=== PATIENT | female | born 1980 | race Caucasian/White ===

== ENCOUNTER 2016-12-13 07:05 | Emergency (ER) | payer BC ==
--- NOTE | 2016-12-13 07:55 | ER Document Report ---
ED GI/ - General Mode of Arrival: Ambulatory Information source: Patient TRAVEL OUTSIDE OF THE [place] IN LAST 30 DAYS: No - HPI Patient complains to provider of: Vaginal bleeding Associated symptoms: Other - See above <EDIN LARIOS - Last Filed: 12/13/16 08:09> <EDITA MUSA - Last Filed: 12/13/16 10:54> - General Chief Complaint: Vaginal Bleeding Stated Complaint: VAGINAL BLEEDING Time Seen by Provider: 12/13/16 07:47 Notes: Patient is a 36 year old female who presents to the emergency department complaining of vaginal bleeding onset this morning. Patient is 14 weeks , . Patient reports that she noticed the blood in the toilet this morning after urinating, described it as a "pinky" red and mixed in with the urine. Patient also complains of some mild abdominal cramps since. ObGYN: [facility] (EDIN LARIOS) - Related Data Allergies/Adverse Reactions: No Known Allergies Allergy (Verified 11/10/15 14:48) Past Medical History - General Information source: Patient - Social History Smoking Status: Never Smoker Family History: Reviewed & Not Pertinent Patient has suicidal ideation: No Patient has homicidal ideation: No Past Surgical History: Reports: Hx Section - 11/2015 <EDIN LARIOS - Last Filed: 12/13/16 08:09> Review of Systems - Review of Systems Constitutional: No symptoms reported EENT: No symptoms reported Cardiovascular: No symptoms reported Respiratory: No symptoms reported Gastrointestinal: See HPI, Abdominal pain Genitourinary: No symptoms reported Female Genitourinary: See HPI, , Vaginal bleeding Musculoskeletal: No symptoms reported Skin: No symptoms reported Hematologic/Lymphatic: No symptoms reported Neurological/Psychological: No symptoms reported -: Yes All other systems reviewed and negative <EDIN LARIOS - Last Filed: 12/13/16 08:09> Physical Exam - Vital signs Interpretation: Normal - General General appearance: Appears well, Alert - HEENT Head: Normocephalic, Atraumatic - Respiratory Respiratory status: No respiratory distress Chest status: Nontender Breath sounds: Normal Chest palpation: Normal - Cardiovascular Rhythm: Regular Heart sounds: Normal auscultation Murmur: No - Abdominal Inspection: Obese Distension: No distension Bowel sounds: Normal Tenderness: Nontender - and soft Organomegaly: No organomegaly - Back Back: Normal, Nontender - Extremities General upper extremity: Normal inspection General lower extremity: Normal inspection - Neurological Neuro grossly intact: Yes Cognition: Normal Orientation: AAOx4 Lui Coma Scale Eye Opening: Spontaneous [place] Coma Scale Verbal: Oriented [place] Coma Scale Motor: Obeys Commands Lui Coma Scale Total: 15 Speech: Normal - Psychological Associated symptoms: Normal affect, Normal mood - Skin Skin Temperature: Warm Skin Moisture: Dry Skin Color: Normal <EDIN LARIOS - Last Filed: 12/13/16 08:09> - Genitourinary External exam: Normal Speculum exam: Cervix closed, Other - There is very old dark brownish blood seen in the vaginal vault and from the cervix. <EDITA MUSA - Last Filed: 12/13/16 10:54> - Vital signs Vitals: Temp Pulse Resp BP Pulse Ox 98.6 F 98 16 129/83 H 98 12/13/16 07:13 12/13/16 07:13 12/13/16 07:13 12/13/16 07:13 12/13/16 07:13 Course <EDIN LARIOS - Last Filed: 12/13/16 08:09> - Laboratory Result Diagrams: 12/13/16 08:15 - Diagnostic Test Radiology reviewed: Image reviewed, Reports reviewed - Ultrasound shows a 13 week 4 day gestation rate of 150. There are no abnormalities seen. <EDITA MUSA - Last Filed: 12/13/16 10:54> - Re-evaluation Re-evalutation: 12/13/16 10:49 Patient's history, physical exam, and ultrasound suggests she had a subchorionic bleed several days ago and it is just now working his way out. ( EDITA MUSA) - Vital Signs Vital signs: Temp Pulse Resp BP Pulse Ox 98.6 F 98 20 129/83 H 98 12/13/16 07:13 12/13/16 07:13 12/13/16 07:55 12/13/16 07:13 12/13/16 07:13 - Laboratory Laboratory results interpreted by me: 12/13/16 08:20 Urine Ketones 20 H Discharge <EDIN LARIOS - Last Filed: 12/13/16 08:09> <EDITA MUSA - Last Filed: 12/13/16 10:54> - Discharge Clinical Impression: 13 week 4 day intrauterine , Subchorionic hemorrhage in second trimester Condition: Stable Disposition: HOME, SELF-CARE Additional Instructions: Ultrasound shows a normal measuring 13 weeks 4 days. Your exam suggests you had a small subchorionic bleed several days ago and it is just now working its way out of the uterus into the vagina. [facility] for [facility]ck. RETURN TO THE EMERGENCY ROOM IF ANY NEW OR WORSENING SYMPTOMS. Scribe Attestation: 12/13/16 10:54 I personally performed the services described in the documentation, reviewed and edited the documentation which was dictated to the scribe in my presence, and it accurately records my words and actions. (EDITA MUSA) Scribe Documentation - Scribe Written by Maria Eugenia:: maria eugenia Vogt, 12/13/16, 0810 acting as scribe for :: Raymond <EDIN LARIOS - Last Filed: 12/13/16 08:09>
[2016-12-13 08:21] LABS: ABSOLUTE BASOPHILS # (AUTO) 0.1 10^3/uL (0.0-0.2); ABSOLUTE EOSINOPHILS # (AUTO) 0.1 10^3/uL (0.0-0.6); ABSOLUTE LYMPHOCYTES (AUTO) 1.6 10^3/uL (0.5-4.7); ABSOLUTE MONOCYTES (AUTO) 0.6 10^3/uL (0.1-1.4); ABSOLUTE NEUT (AUTO) 7.6 10^3/uL (1.7-8.2); BASOPHILS % (AUTO) 0.6 % (0-2); HEMATOCRIT 39.6 % (36.0-47.0); HEMOGLOBIN 13.2 g/dL (12.0-15.5); LYMPHOCYTES % (AUTO) 16.1 % (13-45); MEAN CORPUSCULAR HEMOGLOBIN 28.2 pg (27.0-33.4); MEAN CORPUSCULAR HGB CONC 33.4 g/dL (32.0-36.0); MEAN CORPUSCULAR VOLUME 85 fl (80-97); MONOCYTES % (AUTO) 5.7 % (3-13); RED BLOOD COUNT 4.69 10^6/uL (3.72-5.28); RED CELL DISTRIBUTION WIDTH 13.9 % (11.5-14.0); SEGMENTED NEUTROPHILS % (AUTO) 76.6 % (42-78)
[2016-12-13 09:49] LABS: APPEARANCE,URINE CLEAR; BILIRUBIN,URINE NEGATIVE (NEGATIVE); GLUCOSE, URINE NEGATIVE (NEGATIVE); KETONES,URINE 20 mg/dL (NEGATIVE); LEUKOCYTE ESTERASE,URINE NEGATIVE (NEGATIVE); NITRITE,URINE NEGATIVE (NEGATIVE); PROTEIN,URINE NEGATIVE (NEGATIVE); URINE SPECIFIC GRAVITY 1.021; UROBILINOGEN,URINE NEGATIVE mg/dL (<2.0)
[2016-12-13 09:57] LABS: BACTERIA,URINE 1+ /HPF; RBC,URINE RARE /HPF
--- NOTE | 2016-12-13 10:25 | RADIOLOGY REPORT (SQ) ---
EXAM DESCRIPTION: U/S [id number] TRNABD 1GES W/ODOP COMPLETED DATE/TIME: 12/13/2016 9:35 am REASON FOR STUDY: vag bleeding COMPARISON: None. TECHNIQUE: Transabdominal static and realtime grayscale images acquired of the pelvis. Additional se lected spectral and color Doppler images recorded. All images stored on PACs. bHCG: Not applicable. LIMITATIONS: None. FINDINGS: FETUS: Living intrauterine . EGA: 13 weeks 4 days FRIDA: 06/16/2017 FHR: 150 beats per minute. SUBCHORIONIC BLEED: No SIZE OF BLEED: Not applicable. UTERUS: No masses, no non months. 15 x 10.3 x 6.9 cm. CERVICAL LENGTH: 5.4 cm Closed. RIGHT ADNEXA: Ovary not identified. No adnexal free fluid. No adnexal masses. LEFT ADNEXA: Ovary not identified. No adnexal free fluid. No adnexal masses. FREE FLUID: None. OTHER: No other significant finding. IMPRESSION: LIVING INTRAUTERINE . EGA 13 weeks 4 days. Trimester of : 2nd -13 to 26 weeks. TECHNICAL DOCUMENTATION: JOB ID: [id number] [employer]- All Rights Reserved
[2016-12-13 11:27] VITALS: BP 138/83
== END 2016-12-13 11:25 | disposition home or self-care (01) ==
LOC: ER 07:05
DX: O46.92 Antepartum hemorrhage, unspecified, second trimester (principal); Z3A.14 14 weeks gestation of pregnancy
CPT/HCPCS: 99284; 96372; 51701; 86900; 86901; 36415; 86850; 85025; 81001; 76801; J2790

== ENCOUNTER 2016-12-16 04:54 | Emergency (ER) | payer BC ==
--- NOTE | 2016-12-16 06:58 | ER Document Report ---
ED GI/ - General Mode of Arrival: Ambulatory Information source: Patient TRAVEL OUTSIDE OF THE [place] IN LAST 30 DAYS: No - HPI Patient complains to provider of: Vaginal bleeding Onset: Other - 3 days ago Menstrual period history: Associated symptoms: Other - see notes above - General Chief Complaint: Vaginal Bleeding Stated Complaint: VAG BLEEDING Time Seen by Provider: 12/16/16 06:45 Notes: 36 year old female () presents to the ED complaining of vaginal bleeding that started 3 days ago. Patient reports that she was seen in the ED 3 days ago after noticing blood in the toilet when she went to wipe and was diagnosed with a subchorionic bleed. Patient reports that early this morning she was walking to get a drink when she noticed blood soaking through her clothing. Patient states that she uses a pad, and denies and blood soaking through it. OB: [facility]; next appointment later this week (DHRUV HUDSON) - Related Data Allergies/Adverse Reactions: No Known Allergies Allergy (Verified 12/16/16 05:07) Past Medical History - General Information source: Patient - Social History Smoking Status: Unknown if Ever Smoked Family History: Reviewed & Not Pertinent Renal/ Medical History: Reports: Other - subchornionic bleed during 2nd . Denies: Hx Peritoneal Dialysis Past Surgical History: Reports: Hx Section - 11/2015 - Immunizations Hx Diphtheria, Pertussis, Tetanus Vaccination: Yes Review of Systems - Review of Systems Constitutional: No symptoms reported EENT: No symptoms reported Cardiovascular: No symptoms reported Respiratory: No symptoms reported Gastrointestinal: No symptoms reported Genitourinary: No symptoms reported Female Genitourinary: See HPI, , Vaginal bleeding Musculoskeletal: No symptoms reported Skin: No symptoms reported Hematologic/Lymphatic: No symptoms reported Neurological/Psychological: No symptoms reported -: Yes All other systems reviewed and negative Physical Exam - General General appearance: Alert In distress: None - HEENT Head: Normocephalic, Atraumatic Eyes: Normal Extraocular movements intact: Yes Pupils: PERRL - Respiratory Respiratory status: No respiratory distress Breath sounds: Normal - Cardiovascular Rhythm: Regular Heart sounds: Normal auscultation - Abdominal Inspection: Normal Distension: No distension Tenderness: Nontender - Genitourinary External exam: Normal Speculum exam: Cervix closed Vaginal bleeding: Mild - dark scant blood in vaginal cul de sac [place] exam: Normal. No: Cervical motion tender, Adnexal tenderness - Back Back: Normal - Extremities General upper extremity: Normal inspection, Normal ROM General lower extremity: Normal inspection, Normal ROM, Normal weight bearing - Neurological Neuro grossly intact: Yes Cognition: Normal Orientation: AAOx4 Lui Coma Scale Eye Opening: Spontaneous Lui Coma Scale Verbal: Oriented Lui Coma Scale Motor: Obeys Commands [place] Coma Scale Total: 15 Speech: Normal - Psychological Associated symptoms: Normal affect, Normal mood - Skin Skin Temperature: Warm Skin Moisture: Dry Skin Color: Normal Course - Re-evaluation Re-evalutation: 12/16/16 08:28 Presents emergency department chief complaint vaginal spotting. Patient was seen and evaluated here the other day approximately 12-14 weeks and the bleeding had subsided now she has got some spotting. She denies any associated pain recent intercourse nausea vomiting diarrhea on examination well- appearing nontoxic in no acute distress abdomen soft no guarding rebound rigidity cervix is closed small amount of dark bleeding in the cul-de-sac. Ultrasound shows to be 14 weeks and 2 days. Gave her instructions on threatened miscarriage close follow-[facility] with [facility] and discussed reasons for ED return sooner 12/16/16 08:29 (HEIDI JALLOH) - Vital Signs Vital signs: Temp Pulse Resp BP Pulse Ox 98.3 F 82 16 120/82 96 12/16/16 05:11 12/16/16 08:43 12/16/16 08:43 12/16/16 08:43 12/16/16 08:43 Discharge - Discharge Clinical Impression: Threatened Condition: Stable Disposition: HOME, SELF-CARE Instructions: Threatened Miscarriage ([facility]) Additional Instructions: Vaginal Bleeding You are having an episode of abnormal bleeding. Causes of abnormal vaginal bleeding can include miscarriage or tubal , tumors such as cancer or benign fibroids, medication effects, or hormone imbalance. Testing can eliminate unsuspected , tumors, or infection as a cause. "Dysfunctional uterine bleeding" is due to hormone imbalance, and is especially common at times when the normal cycle is disturbed -- whether by recent , use of control pills or hormones, or impending menopause. If the bleeding is innocent, most commonly a short course of hormones is given to restore the uterus to normal. Sometimes, the normal menstrual cycle corrects itself naturally. Sometimes , brief hormone therapy, or even a D&C is required. Your physician will advise you. Treatment for anemia may be required if bleeding is severe. You should rest and avoid intercourse until the bleeding is controlled. Call the doctor or return for re-examination if you feel faint, have increasing pain, or have a major increase in the amount of bleeding. Threatened Miscarriage You have been evaluated for a possible miscarriage. At this time, there is no indication that a miscarriage will occur. Most women with your symptoms will go on to have a perfectly normal baby. However, careful observation will be necessary. A miscarriage occurs when the fetus is abnormal. There is no medicine or treatment for it. You should rest in bed until the symptoms have resolved. Do not douche or have sex for at least a week, or until OK'd by the doctor. Call the doctor or return for re-examination if there is an increase in bleeding or cramping, or passage of tissue. Referrals: [facility] [Provider Group] (call in am to be seen in follow up in 2-3 days return to er sooner for increasing worsening or new symptoms) To Attestation: 12/16/16 08:27 I personally performed the services described in the documentation reviewed the documentation recorded by my scribe in my presence and it accurately and completely records my words and actions (HEIDI JALLOH) Radhaibe Documentation - Scribe Written by To:: To [place], 12/16/2016 0727 acting as scribe for :: Christopher
--- NOTE | 2016-12-16 07:56 | RADIOLOGY REPORT (SQ) ---
EXAM DESCRIPTION: U/S OB 14+ TRNABD 1GES W/O DOP COMPLETED DATE/TIME: 12/16/2016 7:44 am REASON FOR STUDY: bleeding COMPARISON: 12/13/2016. TECHNIQUE: Static and Dynamic grayscale imaging performed of gravid uterus using transabdominal appr oach. Additional selected color Doppler and spectral images recorded. All stored on PACS. LIMITATIONS: None. FINDINGS: EGA: 14 weeks 2 days FRIDA: 06/14/2017 PRESENTATION: Variable. ANATOMY: Not performed due to early gestational age. MATERNAL ADNEXA: Maternal ovaries not visualized. CERVICAL LENGTH: 4.5 cm. Closed. OTHER: No other significant finding. IMPRESSION: LIVING INTRAUTERINE . No acute findings. ESTIMATED GESTATIONAL AGE 14 weeks 2 days Limited due to early gestational age. Trimester of : Second trimester - 13 weeks 1 day to 27 weeks 6 days. TECHNICAL DOCUMENTATION: JOB ID: [id number]- All Rights Reserved
[2016-12-16 08:48] VITALS: BP 120/82
== END 2016-12-16 08:48 | disposition home or self-care (01) ==
LOC: ER 04:54
DX: O20.0 Threatened abortion (principal)
CPT/HCPCS: 76805; 99284

== ENCOUNTER 2017-06-09 05:06 | Inpatient (IN) | payer BC ==
[2017-06-06 12:30] LABS: ABSOLUTE EOSINOPHILS # (AUTO) 0.1 10^3/uL (0.0-0.6); ABSOLUTE LYMPHOCYTES (AUTO) 1.5 10^3/uL (0.5-4.7); ABSOLUTE MONOCYTES (AUTO) 0.8 10^3/uL (0.1-1.4); ABSOLUTE NEUT (AUTO) 10.2 10^3/uL (1.7-8.2); BASOPHILS % (AUTO) 0.3 % (0-2); EOSINOPHILS % (AUTO) 0.5 % (0-6); HEMATOCRIT 33.1 % (36.0-47.0); HEMOGLOBIN 10.9 g/dL (12.0-15.5); HGB HCT DIFFERENCE -0.4; LYMPHOCYTES % (AUTO) 11.7 % (13-45); MEAN CORPUSCULAR HEMOGLOBIN 25.2 pg (27.0-33.4); MEAN CORPUSCULAR HGB CONC 32.8 g/dL (32.0-36.0); MEAN CORPUSCULAR VOLUME 77 fl (80-97); MONOCYTES % (AUTO) 6.2 % (3-13); RED BLOOD COUNT 4.32 10^6/uL (3.72-5.28); RED CELL DISTRIBUTION WIDTH 14.6 % (11.5-14.0); SEGMENTED NEUTROPHILS % (AUTO) 81.3 % (42-78); WHITE BLOOD COUNT 12.6 10^3/uL (4.0-10.5)
[2017-06-06 12:35] LABS: AMORPHOUS SEDIMENT,URINE TRACE /HPF; APPEARANCE,URINE CLOUDY; BILIRUBIN,URINE NEGATIVE (NEGATIVE); GLUCOSE, URINE 50 mg/dL (NEGATIVE); KETONES,URINE NEGATIVE (NEGATIVE); LEUKOCYTE ESTERASE,URINE LARGE (NEGATIVE); NITRITE,URINE NEGATIVE (NEGATIVE); PROTEIN,URINE 30 mg/dL (NEGATIVE); URINE SPECIFIC GRAVITY 1.029; UROBILINOGEN,URINE NEGATIVE mg/dL (<2.0)
[2017-06-06 12:48] LABS: URINE BARBITURATES SCREEN NEGATIVE; URINE METHADONE SCREEN NEGATIVE; URINE OPIATES LOW NEGATIVE; URINE PHENCYCLIDINE SCREEN NEGATIVE
[2017-06-09] MEDS ORDERED: RINGERS SOLUTION,LACTATED 1,000 ML IV PRN ×2 (05:53)
[2017-06-09] MEDS ORDERED: CEFAZOLIN 2 GM/D5W RTU 2 GM/50 ML RTUPB IV ONE (06:00)
[2017-06-09] MEDS ORDERED: OXYTOCIN 10 UNIT/ML VIAL ONE (07:21)
[2017-06-09] MEDS ORDERED: PROPOFOL INJ 200 MG/20 ML VIAL IV ONE (07:21)
[2017-06-09] MEDS ORDERED: FENTANYL CITRATE INJ/PF 100 MCG/2 ML AMPUL ONE (07:21)
[2017-06-09] MEDS ORDERED: ACETAMINOPHEN 100 ML IV ONE (07:22)
[2017-06-09] MEDS ORDERED: OXYTOCIN/NORMAL SALINE 20 UNIT/1,000 ML RTUINJ ONE ×2 (07:22→10:54)
[2017-06-09] MEDS ORDERED: MIDAZOLAM 2 MG/2 ML INJ ONE (07:22)
[2017-06-09] MEDS ORDERED: EPHEDRINE SULFATE INJ 50 MG/1 ML AMPULE ONE (07:23)
[2017-06-09] MEDS ORDERED: ONDANSETRON HCL INJ/PF 4 MG/2 ML SDV ONE (07:23)
[2017-06-09] MEDS ORDERED: CEFAZOLIN INJ 1 GM VIAL ONE (08:25)
[2017-06-09] MEDS ORDERED: DIPHENHYDRAMINE HCL 50 MG/ML VIAL IV PRN (08:52)
[2017-06-09] MEDS ORDERED: FENTANYL CITRATE INJ/PF 100 MCG/2 ML AMPUL IV PRN ×3 (08:52)
[2017-06-09] MEDS ORDERED: MORPHINE SULFATE 10 MG/ML INJ IV PRN (08:52)
[2017-06-09] MEDS ORDERED: PROMETHAZINE HCL INJ 25 MG/1 ML VIAL IV PRN ×2 (08:52→09:35)
[2017-06-09] MEDS ORDERED: ACETAMINOPHEN 325 MG TABLET PO PRN (09:35)
[2017-06-09] MEDS ORDERED: ACETAMINOPHEN 100 ML IV PRN (09:35)
[2017-06-09] MEDS ORDERED: OXYTOCIN/NORMAL SALINE 20 UNIT/1,000 ML RTUINJ IV PRN (09:35)
[2017-06-09] MEDS ORDERED: MEASLES,MUMPS&RUBELLA VACC/PF 0.5 ML VIAL SUBCUT PRN (09:35)
[2017-06-09] MEDS ORDERED: DIPH/PERTUSS(ACELL)/TETANUS VAC/PF 0.5 ML SYR (>=10YO) IM PRN (09:35)
[2017-06-09] MEDS ORDERED: OXYCODONE-ACETAMINOPHEN 5-325 MG TABLET PO PRN (09:35)
[2017-06-09] MEDS ORDERED: SIMETHICONE 80 MG TAB.CHEW PO PRN (09:35)
--- NOTE | 2017-06-09 09:42 | Brief Operative Note ---
BRIEF OPERATIVE REPORT DATE OF SURGERY: 06/09/17 TIME OF SURGERY: 09:30 PREOPERATIVE DIAGNOSIS: H/o section, Undesired Fertility, Suspected Macrosomia, Materna Obesity, , 39+1ega POSTOPERATIVE DIAGNOSIS: CAROLA - delivered SURGEON: MURALI SANCHEZ FINDINGS: VMI delivered from cephalic presentation. TIme of 0839, Apgars 8/9, clear amniotic fluid. Normal bilateral tubes, normal ovaries. EBL 600ml, IVF 3400ml, UOP 75ml clear urine. Weight 8#10oz COMPLICATIONS: None ESTIMATED BLOOD LOSS: 600ml TISSUE REMOVED OR ALTERED: placenta and cord - not sent to pathology TECHNICAL PROCEDURE: Repeat Section with BTL with Filschie Clips
--- NOTE | 2017-06-09 09:44 | PDOC DELIVERY SUMMARY ---
Delivery Summary - Maternal Hx : III Hx Para: I Hx # Term Pregnancies: 1 Hx # Pregnancies: 0 Hx Total # of Abortions (Sponateous & Elective): 1 Number of Living Children: 1 FRIDA: 06/15/17 Gestational Age: 39+1 Risk Factors: Previous Ruptured Membranes: AROM Time of Rupture: 08:38 Fluids: Clear - Delivery Labor: Not In Labor Presentation: Vertex Heart Rate Monitoring: Done Pre-Operatively Uterine Contraction Monitoring: External Support Person Present: Yes - VARGAS Location: OR : Repeat Placenta: Within Normal Limits Placenta Description: normal Number of Vessels (Cord): 3 Nuchal Cord: No Delivery of Placenta Date: 06/09/17 Delivery of Placenta Time: 08:41 - Medications Type of Anesthesia:: Spinal - Infant Assess and Care Baby 1 Male Delivery of Date: 06/09/17 Delivery of Time: 08:39 at 1 minute: 8 at 5 minutes: 9 Preprinted Number On Band: [id number] Infant Skin to Skin: No To Nursery At: 08:48 Mode of Transport: Bassinet Delivery Weight: 3,920 Infant Delivery Length: 21.5 in - Delivery Personnel Press Tender: DR. PEDRO Colon RN: Karla JONES RN: SOTO SERNA MD: MURALI SANCHEZ
[2017-06-09] MEDS ORDERED: PRENATAL VITAMIN W DHA CAPSULE PO SCH (10:00)
[2017-06-09] MEDS ORDERED: KETOROLAC TROMETHAMINE INJ/PF 30 MG/1 ML SDV IV ONE (11:00)
[2017-06-09] MEDS ORDERED: HYDROMORPHONE HCL INJ/PF 2 MG/ML AMPULE ONE (11:05)
[2017-06-09] MEDS: HYDROMORPHONE HCL INJ/PF 2 MG/ML AMPULE IV PRN ×3 (11:08→20:06)
[2017-06-09] MEDS: DOCUSATE SODIUM 100 MG CAPSULE PO SCH ×2 (11:29→17:39)
[2017-06-09] MEDS ORDERED: PHENYLEPHRINE HCL INJ/PF 10 MG/1 ML SDV ONE (12:50)
[2017-06-09] MEDS ORDERED: GLYCOPYRROLATE INJ 0.4 MG/2 ML VIAL ONE (12:50)
[2017-06-09] MEDS: OXYCODONE-ACETAMINOPHEN 5-325 MG TABLET PO PRN (13:10)
[2017-06-09] MEDS ORDERED: KETOROLAC TROMETHAMINE INJ/PF 30 MG/1 ML SDV IV SCH (18:00)
[2017-06-10] MEDS: OXYCODONE-ACETAMINOPHEN 5-325 MG TABLET PO PRN ×4 (00:02→18:03)
[2017-06-10] MEDS ORDERED: ACETAMINOPHEN 325 MG TABLET PO PRN (00:31)
[2017-06-10] MEDS ORDERED: DIPH/PERTUSS(ACELL)/TETANUS VAC/PF 0.5 ML SYR (>=10YO) IM PRN (00:31)
[2017-06-10] MEDS ORDERED: HYDROMORPHONE HCL INJ/PF 2 MG/ML AMPULE IV PRN (00:32)
[2017-06-10] MEDS ORDERED: MEASLES,MUMPS&RUBELLA VACC/PF 0.5 ML VIAL SUBCUT PRN (00:34)
[2017-06-10] MEDS ORDERED: OXYCODONE-ACETAMINOPHEN 5-325 MG TABLET PO PRN (00:34)
[2017-06-10] MEDS ORDERED: PROMETHAZINE HCL INJ 25 MG/1 ML VIAL IV PRN (00:36)
[2017-06-10] MEDS ORDERED: KETOROLAC TROMETHAMINE INJ/PF 30 MG/1 ML SDV IV SCH (02:00)
[2017-06-10] MEDS: IBUPROFEN 800 MG TABLET PO SCH ×4 (02:16→20:34)
--- NOTE | 2017-06-10 05:44 | Operative Report ---
Operative Report DATE OF SURGERY: 06/09/17 PREOPERATIVE DIAGNOSIS: H/o section, Undesired Fertility, Suspected Macrosomia, Materna Obesity, , 39+1ega POSTOPERATIVE DIAGNOSIS: CAROLA - delivered OPERATION: Repeat Section with BTL with Filschie Clips SURGEON: MURALI SANCHEZ ANESTHESIA: Spinal TISSUE REMOVED OR ALTERED: placenta and cord - not sent to pathology COMPLICATIONS: None ESTIMATED BLOOD LOSS: 600ml INTRAOPERATIVE FINDINGS: VMI delivered from cephalic presentation. TIme of 0839, Apgars 8/9, clear amniotic fluid. Normal bilateral tubes, normal ovaries. EBL 600ml, IVF 3400ml, UOP 75ml clear urine. Weight 8#10oz PROCEDURE: Anesthesia provider: [Maday REILLY] Estimated blood loss: [600ml] Urine output: [75ml clear urine] IV fluids: [3400ml] Complications: [None] Specimens: [None] Indications: [36yo with history of section now at 39+1ega presents for repeat section. Prior section was done for cephalopelvic disoproportion wtih 7#13oz baby and this baby is estimated to be larger. She declines TOLAC and desires repeat section. She is 100% that she has completed childbearing and desires tubal sterilization with her repeat section. The risk, benefits, alternatives were reviewed with the patient and she desire to proceed with Repeat section and BTL.] Procedure: The patient was taken to the operating room where spinal anesthesia was obtained and found to be adequate. She was then prepped and draped in the normal sterile fashion and placed in the dorsal supine position with a leftward tilt. A Pfannenstiel skin incision was then made and carried through to the underlying layers of the fascia with the scalpel. The fascia was incised in the midline and the incision extended laterally with the Cruz scissors. The superior aspect of the fascial incision was then grasped with [place] clamps elevated and the underlying rectus muscles dissected off [bluntly]. Attention was then turned to the inferior aspect of the fascial incision which in a similar fashion was grasped, tented up with Shara clamps, and the rectus muscles dissected off [bluntly]. The rectus muscles were then in the midline and the peritoneum at the amount identified and entered [bluntly]. The peritoneal incision was then extended superiorly and inferiorly with good visualization of the bladder. The bladder blade was inserted and the vesicouterine peritoneum identified grasped with American pickups and entered sharply with the Metzenbaum scissors. This incision was then extended laterally with the Metzenbaum scissors and a bladder flap created digitally. The bladder blade was then reinserted and the lower uterine segment incised in a transverse fashion with the scalpel. The uterine incision was then extended bluntly. The bladder blade was removed and the 's head was delivered from cephalic presentation atraumatically. The nose and mouth were suctioned and the cord doubly clamped and cut. And the infant was handed off to waiting pediatricians. The placenta was then delivered spontaneously and the uterus exteriorized and cleared of all clots and debris. The uterine incision was then repaired with 1- 0 Vicryl in a running locked fashion. A second layer of the same suture was used to obtain hemostasis via imbrication of the initial layer. The bladder flap was then repaired with 3-0 chromic in a running fashion. THe right fallopian tube was identified and followed out to the fimbriated end. Filschie clip times 2 were placed in the mid ampullary portion of the fallopin tube. This procedure was then repeated on the patients left. This completed bilateral tubal ligation with filscie clip placed times 2 on bilateral fallopian tubes. The uterus was returned to the patient's abdomen and Interceed was placed overlying the uterine incision to prevent adhesions. The gutters were cleared of all clots and debris. All operative sites were noted to be hemostatic. The fascia was reapproximated with 0 Vicryl in a running fashion from each lateral edge to the midline. The skin was closed with 3-0 Monocryl in a running subcuticular fashion with overlying Dermabond for additional dressing as well as wound closure. The patient tolerated the procedure well. Sponge lap needle and instrument counts are correct times 2. 3 g of Ancef were given prior to skin incision. The patient was taken to the recovery area awake and in stable condition.
[2017-06-10 07:26] LABS: ABSOLUTE BASOPHILS # (AUTO) 0.1 10^3/uL (0.0-0.2); ABSOLUTE EOSINOPHILS # (AUTO) 0.1 10^3/uL (0.0-0.6); ABSOLUTE LYMPHOCYTES (AUTO) 1.4 10^3/uL (0.5-4.7); ABSOLUTE MONOCYTES (AUTO) 0.9 10^3/uL (0.1-1.4); BASOPHILS % (AUTO) 0.5 % (0-2); EOSINOPHILS % (AUTO) 0.6 % (0-6); HEMOGLOBIN 10.3 g/dL (12.0-15.5); HGB HCT DIFFERENCE -1.1; LYMPHOCYTES % (AUTO) 9.3 % (13-45); MEAN CORPUSCULAR HEMOGLOBIN 24.9 pg (27.0-33.4); MEAN CORPUSCULAR HGB CONC 32.2 g/dL (32.0-36.0); MEAN CORPUSCULAR VOLUME 77 fl (80-97); MONOCYTES % (AUTO) 5.6 % (3-13); RED BLOOD COUNT 4.14 10^6/uL (3.72-5.28); RED CELL DISTRIBUTION WIDTH 14.9 % (11.5-14.0); WHITE BLOOD COUNT 15.5 10^3/uL (4.0-10.5)
[2017-06-10] MEDS: SIMETHICONE 80 MG TAB.CHEW PO PRN ×2 (09:50→18:03)
[2017-06-10] MEDS: DOCUSATE SODIUM 100 MG CAPSULE PO SCH ×2 (09:50→18:02)
[2017-06-10] MEDS: PRENATAL VITAMIN W DHA CAPSULE PO SCH (09:50)
--- NOTE | 2017-06-10 11:05 | PDOC PROGRESS REPORT ---
Subjective-OB Subjective: Post Delivery Day: 1 36 year old. Denies any needs at this time, lochia is stable, pain well controlled, voiding without difficulty. Physical Exam (OB) Vital Signs: Temp Pulse Resp BP Pulse Ox 98.2 F 103 H 18 133/77 H 100 06/10/17 07:54 06/10/17 07:54 06/10/17 07:54 06/10/17 07:54 06/10/17 07:54 Intake & Output 06/09/17 06/10/17 06/11/17 06:59 06:59 06:59 Intake Total 1999 Output Total 1025 Balance 975 Weight 114.759 kg - Dressing Removed: No - surgitape on incision intact, no drainage, swelling or redness noted Incision: Well Approximated Closure Type: Surgical Glue - Lochia Lochia Amount: Scant < 10 ml Lochia Color: Rubra/Red - Abdomen Description: Tender, Soft Hernia Present: No Fundal Description: Firm, Midline Fundal Height: u/u - u/2 Objective-Diagnostic Laboratory: 06/10/17 07:15 06/10/17 07:15 WBC 15.5 H RBC 4.14 Hgb 10.3 L Hct 32.0 L MCV 77 L MCH 24.9 L MCHC 32.2 RDW 14.9 H Plt Count 241 Seg Neutrophils % 84.0 H Lymphocytes % 9.3 L Monocytes % 5.6 Eosinophils % 0.6 Basophils % 0.5 Absolute Neutrophils 13.0 H Absolute Lymphocytes 1.4 Absolute Monocytes 0.9 Absolute Eosinophils 0.1 Absolute Basophils 0.1 Assessment and Plan(PN) - Assessment and Plan (1) Unwanted fertility Is this a current diagnosis for this admission?: Yes Plan: btl (2) Acute blood loss anemia Is this a current diagnosis for this admission?: Yes Plan: ferrous sulfate increase dietary iron (3) delivery delivered Is this a current diagnosis for this admission?: Yes Plan: routine post op care - Time Spent with Patient Time with patient: Less than 15 minutes Critical Time spent with patient: Less than 15 minutes Medications reviewed and adjusted accordingly: Yes - Disposition Anticipated Discharge: Home Within: within 24 hours
--- NOTE | 2017-06-10 15:31 | PDOC DISCHARGE SUMMARY ---
<RASHMI DONNELLY - Last Filed: 06/10/17 15:30> Final Diagnosis - Final Diagnosis (1) Unwanted fertility Is this a current diagnosis for this admission?: Yes (2) Acute blood loss anemia Is this a current diagnosis for this admission?: Yes (3) delivery delivered Is this a current diagnosis for this admission?: Yes Discharge Data - Discharge Medication Home Medications: Vit/Iron Fum/Folic AC [ Tablet] 1 each PO DAILY 10/31/15 Cetirizine HCl [Zyrtec 10 mg Chewable Tab] 1 tab PO DAILY PRN 06/06/17 Docusate Sodium [Colace 100 mg Capsule] 100 mg PO BID #60 capsule 06/10/17 Ferrous Sulfate 325 mg PO BID #60 tablet. 06/10/17 Ibuprofen [Motrin 800 mg Tablet] 800 mg PO Q6A #60 tablet 06/10/17 Oxycodone HCl/Acetaminophen [Percocet 5-325 mg Tablet] 2 tab PO Q4HP PRN #30 tablet 06/10/17 Gestational Age: 39.1 Reason(s) for Admission: Ceasarean Section-Repeat Procedures: NST Intrapartum Procedure(s): : Low Cervical, Transverse, Tubal Ligation - [place]verse Data Baby 1 Male at 1 minute: 8 at 5 minutes: 9 Weight: 3.884 kg Home with Mother: Yes Complications: No - Diagnosis Test Laboratory: Temp Pulse Resp BP Pulse Ox 98.3 F 92 17 118/81 97 06/10/17 11:27 06/10/17 11:27 06/10/17 11:27 06/10/17 11:27 06/10/17 11:27 06/06/17 06/06/17 06/10/17 11:46 11:52 07:15 RBC 4.32 4.14 Hgb 10.9 L 10.3 L Hct 33.1 L 32.0 L Urine Opiates Screen NEGATIVE - Discharge information/Instructions Discharge Activity: Activity As Tolerated, No Driving, Pelvic Rest, No tub bath Discharge Diet: Regular Disposition: HOME, SELF-CARE Follow up with: [facility] in: 1, Weeks <DEBRA CASTILLO - Last Filed: 06/11/17 12:22> Final Diagnosis Discharge Date: 06/11/17 - Final Diagnosis (2) Arrest of descent, delivered, current hospitalization Is this a current diagnosis for this admission?: Yes Discharge Data - Diagnosis Test Laboratory: Temp Pulse Resp BP Pulse Ox 98.2 F 95 16 125/73 98 06/11/17 11:31 06/11/17 11:31 06/11/17 11:31 06/11/17 11:31 06/11/17 11:31 06/06/17 06/06/17 06/10/17 11:46 11:52 07:15 RBC 4.32 4.14 Hgb 10.9 L 10.3 L Hct 33.1 L 32.0 L Urine Opiates Screen NEGATIVE
[2017-06-11] MEDS: IBUPROFEN 800 MG TABLET PO SCH ×2 (03:34→08:06)
[2017-06-11] MEDS ORDERED: ONDANSETRON 4 MG TAB.RAPDIS ONE (08:03)
[2017-06-11] MEDS ORDERED: ONDANSETRON 4 MG TAB.RAPDIS PO PRN (08:04)
[2017-06-11] MEDS ORDERED: IBUPROFEN 800 MG TABLET PO SCH (09:00)
[2017-06-11] MEDS: PRENATAL VITAMIN W DHA CAPSULE PO SCH (10:42)
[2017-06-11] MEDS: DOCUSATE SODIUM 100 MG CAPSULE PO SCH (10:42)
[2017-06-11 13:20] VITALS: BP 131/66
== END 2017-06-11 14:24 | disposition home or self-care (01) | DRG 765 ==
LOC: 2S 05:06
PROVIDERS: ADMIT Student in an Organized Health Care Education/Training Program; ATTEND Student in an Organized Health Care Education/Training Program
PROC: 0UL70CZ Occlusion of Bilateral Fallopian Tubes with Extraluminal Device, Open Approach (ICD-10-PCS; 2017-06-09)
PROC: 4A1HXCZ Monitoring of Products of Conception, Cardiac Rate, External Approach (ICD-10-PCS; 2017-06-09)
PROC: 10D00Z1 Extraction of Products of Conception, Low, Open Approach (ICD-10-PCS; principal; 2017-06-09 07:45)
DX: O34.211 Maternal care for low transverse scar from previous cesarean delivery (principal); D62 Acute posthemorrhagic anemia; Z68.43 Body mass index [BMI] 50.0-59.9, adult; O99.02 Anemia complicating childbirth; O99.214 Obesity complicating childbirth; Z30.2 Encounter for sterilization; Z3A.39 39 weeks gestation of pregnancy; Z37.0 Single live birth
CPT/HCPCS: 1961; 36415; 80307; 81001; 85025; 86850; 86900; 86901; 86920; 94799; C1765; J0131; J0690; J1170; J1885; J2250; J2370; J2405; J2550; J2590; J2704; J3010; J3490; S0119